=== PATIENT | male | born 1980 | race Caucasian/White ===

== ENCOUNTER 2021-06-21 15:48 | Emergency (ER) | payer MEDICAID ==
[~2021-06-21] VITALS: Ht 182.9 cm; Wt 78.3 kg
[2021-06-21 16:25] VITALS: BP 152/98
[2021-06-21] MEDS ORDERED: LIDOCAINE-MPF 1%, 5ML INFIL ONE (16:30)
--- NOTE | 2021-06-21 19:35 | NUR ---
supervisor dyer note: Pt to room from lobby.
[2021-06-21] MEDS ORDERED: LIDOCAINE-MPF 1%, 5ML ONE (19:38)
== END 2021-06-21 20:43 | disposition home or self-care (01) ==
LOC: ED 20:38
DX: L03.114 Cellulitis of left upper limb (principal); L02.414 Cutaneous abscess of left upper limb
CPT/HCPCS: 10060; 99283